=== PATIENT | female | born 1935 | race African-American/Black ===

== ENCOUNTER 2022-08-22 15:47 | Inpatient (IN) ==
[2022-08-22 17:30] LABS: Basophils % 0.2 % (0.0-0.8); Hematocrit 34.2 VOL% (35.7-47.0); Hemoglobin 11.5 GM/DL (12.0-16.0); Immature Granulocytes % 0.6 %; Lymphocytes # 0.6 10*3/uL (1.4-4.0); Lymphocytes % 3.2 % (21.3-54.2); Mean Corpuscular HGB Conc 33.6 GM/DL (32-36); Mean Corpuscular Volume 94.7 FL (87-102); Mean Platelet Volume 11.7 FL (9.6-12.0); Monocytes # 0.4 10*3/uL (0.11-0.8); Monocytes % 2.4 % (1.7-12.7); Neutrophils % 93.6 % (38.7-73.9); Platelet Count 177 T/CUMM (130-400); Red Blood Count 3.61 MC/CUMM (3.8-5.5); Red Cell Distribution Width 13.9 % (9.3-17.3); White Blood Count 17.3 T/CUMM (4-12)
[2022-08-22 17:48] LABS: Albumin 2.9 G/DL (3.4-5.0); Bilirubin,Total 0.7 MG/DL (0.20-1.00); Calcium 9.3 MG/DL (8.5-10.1); Osmolality,Calculated 284.4 MOS/KG (273-304); Potassium 3.9 MMOL/L (3.5-5.1); Total Protein 8.6 G/DL (6.4-8.2)
[2022-08-22 18:01] LABS: Lymphocytes 2 % (20-55); Total Cells Counted 100
[2022-08-22 18:02] LABS: Platelet Estimate Adequate
[2022-08-22 18:23] LABS: Bilirubin,Urine Negative (Negative); Blood, Urine Large mg/dL (Negative); Glucose,Urine (UA) Negative (Negative); Ketones,Urine Negative (Negative); Nitrite,Urine Negative (Negative); Protein,Urine 100 mg/dL (Negative); Urine Appearance Clear (Clear); Urine Color Yellow (Yellow); Urine Specific Gravity >= 1.030 (1.001-1.035); Urine Urobilinogen 0.2 eU/dL (<2.0); Urine pH 5.5 (4.5-8.0)
[2022-08-22 18:26] LABS: Mucus,Urine Few /LPF (Occasional); RBC,Urine 1 /HPF (0-4); Squamous Epithelial Cell,Urine Occasional /HPF (0-10)
[2022-08-22] MEDS ORDERED: VANCOMYCIN INJ 1,000 MG in SODIUM CHLORIDE 0.9% 250 ML IV STA (18:32)
[2022-08-22] MEDS ORDERED: PIPERACILLIN/TAZOBACTAM 3,375 MG in SODIUM CHLORIDE 0.9% 100 ML IV STA (18:32)
[2022-08-22] MEDS ORDERED: ONDANSETRON 4 MG/2 ML VIAL IV PRN (18:40)
[2022-08-22] MEDS: ALBUTEROL/IPRATROPIUM 3 ML NEB RESP TX SCH (19:14)
[2022-08-22] MEDS ORDERED: VANCOMYCIN INJ 1,250 MG in SODIUM CHLORIDE 0.9% 250 ML IV SCH (21:00)
[2022-08-22] MEDS: DOCUSATE SODIUM 100 MG CAPSULE PO SCH (22:21)
[2022-08-22] MEDS: SIMVASTATIN 10 MG TABLET PO SCH (22:21)
[2022-08-22] MEDS: MELATONIN 3 MG TABLET PO SCH (22:21)
[2022-08-22] MEDS: SODIUM CHLORIDE 0.9% 1,000 ML IV SCH (22:50)
[2022-08-22] MEDS: ENOXAPARIN 40 MG/0.4 ML SYRINGE SUBCUT SCH (23:47)
[2022-08-23] MEDS: ALBUTEROL/IPRATROPIUM 3 ML NEB RESP TX SCH ×4 (00:33→19:07)
[2022-08-23] MEDS: PIPERACILLIN/TAZOBACTAM 3,375 MG in SODIUM CHLORIDE 0.9% 100 ML IV SCH ×3 (03:30→17:35)
[2022-08-23] MEDS: BIMATOPROST 0.01% OPH SOLN 2.5 ML BOTTLE BOTH EYES SCH ×2 (04:40→20:38)
[2022-08-23 05:45] LABS: Basophils % 0.2 % (0.0-0.8); Eosinophils % 0.2 % (0.00-10.9); Hematocrit 33.6 VOL% (35.7-47.0); Hemoglobin 11.1 GM/DL (12.0-16.0); Immature Granulocytes % 0.5 %; Immature Granulocytes Absolute 0.07 #; Lymphocytes # 1.4 10*3/uL (1.4-4.0); Lymphocytes % 9.9 % (21.3-54.2); Mean Corpuscular Volume 97.4 FL (87-102); Mean Platelet Volume 12.1 FL (9.6-12.0); Monocytes # 1.1 10*3/uL (0.11-0.8); Monocytes % 7.8 % (1.7-12.7); Neutrophils % 81.4 % (38.7-73.9); Platelet Count 169 T/CUMM (130-400); Red Blood Count 3.45 MC/CUMM (3.8-5.5); Red Cell Distribution Width 13.8 % (9.3-17.3); White Blood Count 14.5 T/CUMM (4-12)
[2022-08-23 06:02] LABS: Albumin 2.9 G/DL (3.4-5.0); Bilirubin,Total 0.8 MG/DL (0.20-1.00); Calcium 9.2 MG/DL (8.5-10.1); Osmolality,Calculated 288.8 MOS/KG (273-304); Potassium 3.2 MMOL/L (3.5-5.1); Total Protein 8.2 G/DL (6.4-8.2)
[2022-08-23 06:44] LABS: Platelet Estimate Adequate
[2022-08-23] MEDS: MULTIVITAMIN (CENTRUM) TABLET PO SCH (09:07)
[2022-08-23] MEDS: FERROUS SULFATE 325 MG TABLET PO SCH ×2 (09:07→20:32)
[2022-08-23] MEDS: ASPIRIN EC 81 MG TABLET PO SCH (09:07)
[2022-08-23] MEDS: VITAMIN E 400 UNIT CAPSULE PO SCH (09:08)
[2022-08-23] MEDS: PANTOPRAZOLE 40 MG TABLET PO SCH (09:08)
[2022-08-23] MEDS: MONTELUKAST 10 MG TABLET PO SCH (09:08)
[2022-08-23] MEDS: propylthiouraciL 50 MG TABLET PO SCH (09:08)
[2022-08-23] MEDS: predniSONE 20 MG TABLET PO SCH (09:08)
[2022-08-23] MEDS: SODIUM POLYSTYRENE SULFATE 15 GM/60 ML BOTTLE PO SCH (09:09)
[2022-08-23] MEDS: VANCOMYCIN INJ 1,250 MG in SODIUM CHLORIDE 0.9% 250 ML IV SCH (09:13)
[2022-08-23] MEDS: POTASSIUM CHLORIDE 20 MEQ TABLET PO SCH ×3 (12:37→15:26)
[2022-08-23] MEDS ORDERED: FUROSEMIDE 20 MG TABLET PO SCH (18:45)
[2022-08-23] MEDS: SODIUM CHLORIDE 0.9% 1,000 ML IV SCH ×2 (19:07→22:08)
[2022-08-23] MEDS: ENOXAPARIN 40 MG/0.4 ML SYRINGE SUBCUT SCH (20:32)
[2022-08-23] MEDS: SIMVASTATIN 10 MG TABLET PO SCH (20:32)
[2022-08-23] MEDS: DOCUSATE SODIUM 100 MG CAPSULE PO SCH (20:32)
[2022-08-23] MEDS: MELATONIN 3 MG TABLET PO SCH (20:32)
[2022-08-24] MEDS: ALBUTEROL/IPRATROPIUM 3 ML NEB RESP TX SCH ×4 (00:20→19:04)
[2022-08-24] MEDS: PIPERACILLIN/TAZOBACTAM 3,375 MG in SODIUM CHLORIDE 0.9% 100 ML IV SCH ×3 (01:22→18:08)
[2022-08-24 06:14] LABS: Basophils % 0.5 % (0.0-0.8); Eosinophils # 0.2 10*3/uL (0.0-0.87); Eosinophils % 1.8 % (0.00-10.9); Hematocrit 32.5 VOL% (35.7-47.0); Hemoglobin 10.5 GM/DL (12.0-16.0); Immature Granulocytes % 0.5 %; Immature Granulocytes Absolute 0.04 #; Lymphocytes # 1.3 10*3/uL (1.4-4.0); Lymphocytes % 14.1 % (21.3-54.2); Mean Corpuscular HGB Conc 32.3 GM/DL (32-36); Mean Corpuscular Volume 97.6 FL (87-102); Mean Platelet Volume 11.7 FL (9.6-12.0); Monocytes # 0.7 10*3/uL (0.11-0.8); Monocytes % 8.1 % (1.7-12.7); Platelet Count 182 T/CUMM (130-400); Red Blood Count 3.33 MC/CUMM (3.8-5.5); Red Cell Distribution Width 13.9 % (9.3-17.3); White Blood Count 8.9 T/CUMM (4-12)
[2022-08-24 06:28] LABS: Calcium 8.9 MG/DL (8.5-10.1); Potassium 3.6 MMOL/L (3.5-5.1)
[2022-08-24] MEDS: PANTOPRAZOLE 40 MG TABLET PO SCH (08:51)
[2022-08-24] MEDS: VITAMIN E 400 UNIT CAPSULE PO SCH (08:51)
[2022-08-24] MEDS: ASPIRIN EC 81 MG TABLET PO SCH (08:51)
[2022-08-24] MEDS: predniSONE 20 MG TABLET PO SCH (08:51)
[2022-08-24] MEDS: propylthiouraciL 50 MG TABLET PO SCH (08:51)
[2022-08-24] MEDS: MONTELUKAST 10 MG TABLET PO SCH (08:51)
[2022-08-24] MEDS: MULTIVITAMIN (CENTRUM) TABLET PO SCH (08:51)
[2022-08-24] MEDS: FERROUS SULFATE 325 MG TABLET PO SCH ×2 (08:51→20:39)
[2022-08-24] MEDS: SODIUM CHLORIDE 0.45% 1,000 ML IV SCH ×2 (08:51→22:23)
[2022-08-24] MEDS: VANCOMYCIN INJ 1,250 MG in SODIUM CHLORIDE 0.9% 250 ML IV SCH (08:52)
[2022-08-24] MEDS: SODIUM POLYSTYRENE SULFATE 15 GM/60 ML BOTTLE PO SCH (10:13)
[2022-08-24] MEDS: ENOXAPARIN 40 MG/0.4 ML SYRINGE SUBCUT SCH (20:37)
[2022-08-24] MEDS: BIMATOPROST 0.01% OPH SOLN 2.5 ML BOTTLE BOTH EYES SCH (20:38)
[2022-08-24] MEDS: DOCUSATE SODIUM 100 MG CAPSULE PO SCH (20:39)
[2022-08-24] MEDS: MELATONIN 3 MG TABLET PO SCH (20:39)
[2022-08-24] MEDS: SIMVASTATIN 10 MG TABLET PO SCH (20:39)
[2022-08-25] MEDS: ALBUTEROL/IPRATROPIUM 3 ML NEB RESP TX SCH ×4 (00:13→19:06)
[2022-08-25] MEDS: PIPERACILLIN/TAZOBACTAM 3,375 MG in SODIUM CHLORIDE 0.9% 100 ML IV SCH ×3 (01:15→17:18)
[2022-08-25 04:51] LABS: Basophils % 0.4 % (0.0-0.8); Eosinophils % 0.2 % (0.00-10.9); Hematocrit 32.8 VOL% (35.7-47.0); Hemoglobin 10.6 GM/DL (12.0-16.0); Immature Granulocytes % 1.6 %; Immature Granulocytes Absolute 0.15 #; Lymphocytes # 1.4 10*3/uL (1.4-4.0); Lymphocytes % 14.8 % (21.3-54.2); Mean Corpuscular HGB Conc 32.3 GM/DL (32-36); Mean Corpuscular Volume 98.8 FL (87-102); Mean Platelet Volume 11.8 FL (9.6-12.0); Monocytes # 0.6 10*3/uL (0.11-0.8); Monocytes % 6.7 % (1.7-12.7); Neutrophils % 76.3 % (38.7-73.9); Platelet Count 191 T/CUMM (130-400); Red Blood Count 3.32 MC/CUMM (3.8-5.5); Red Cell Distribution Width 13.7 % (9.3-17.3); White Blood Count 9.2 T/CUMM (4-12)
[2022-08-25 05:09] LABS: Calcium 9.1 MG/DL (8.5-10.1); Osmolality,Calculated 291.4 MOS/KG (273-304); Potassium 3.4 MMOL/L (3.5-5.1)
[2022-08-25] MEDS ORDERED: POTASSIUM CHLORIDE 20 MEQ TABLET PO ONE (07:28)
[2022-08-25] MEDS: propylthiouraciL 50 MG TABLET PO SCH (09:39)
[2022-08-25] MEDS: predniSONE 20 MG TABLET PO SCH (09:39)
[2022-08-25] MEDS: FERROUS SULFATE 325 MG TABLET PO SCH ×2 (09:39→21:18)
[2022-08-25] MEDS: ASPIRIN EC 81 MG TABLET PO SCH (09:39)
[2022-08-25] MEDS: PANTOPRAZOLE 40 MG TABLET PO SCH (09:39)
[2022-08-25] MEDS: VITAMIN E 400 UNIT CAPSULE PO SCH (09:39)
[2022-08-25] MEDS: MULTIVITAMIN (CENTRUM) TABLET PO SCH (09:43)
[2022-08-25] MEDS: MONTELUKAST 10 MG TABLET PO SCH (09:43)
[2022-08-25] MEDS: VANCOMYCIN INJ 1,250 MG in SODIUM CHLORIDE 0.9% 250 ML IV SCH (09:43)
[2022-08-25] MEDS: SODIUM CHLORIDE 0.45% 1,000 ML IV SCH ×2 (12:42→21:37)
[2022-08-25] MEDS: MELATONIN 3 MG TABLET PO SCH (21:18)
[2022-08-25] MEDS: SIMVASTATIN 10 MG TABLET PO SCH (21:18)
[2022-08-25] MEDS: ENOXAPARIN 40 MG/0.4 ML SYRINGE SUBCUT SCH (21:18)
[2022-08-25] MEDS: DOCUSATE SODIUM 100 MG CAPSULE PO SCH (21:18)
[2022-08-25] MEDS: BIMATOPROST 0.01% OPH SOLN 2.5 ML BOTTLE BOTH EYES SCH (21:20)
[2022-08-26] MEDS: ALBUTEROL/IPRATROPIUM 3 ML NEB RESP TX SCH ×4 (00:12→19:37)
[2022-08-26] MEDS: PIPERACILLIN/TAZOBACTAM 3,375 MG in SODIUM CHLORIDE 0.9% 100 ML IV SCH ×2 (01:22→10:37)
[2022-08-26 05:19] LABS: Basophils # 0.1 10*3/uL (0.0-0.2); Basophils % 0.8 % (0.0-0.8); Eosinophils # 0.1 10*3/uL (0.0-0.87); Eosinophils % 0.9 % (0.00-10.9); Hematocrit 32.4 VOL% (35.7-47.0); Hemoglobin 10.3 GM/DL (12.0-16.0); Immature Granulocytes % 2.4 %; Immature Granulocytes Absolute 0.18 #; Lymphocytes # 1.6 10*3/uL (1.4-4.0); Lymphocytes % 21.6 % (21.3-54.2); Mean Corpuscular HGB Conc 31.8 GM/DL (32-36); Mean Corpuscular Volume 99.4 FL (87-102); Monocytes # 0.6 10*3/uL (0.11-0.8); Monocytes % 8.3 % (1.7-12.7); Platelet Count 175 T/CUMM (130-400); Red Blood Count 3.26 MC/CUMM (3.8-5.5); Red Cell Distribution Width 13.9 % (9.3-17.3); White Blood Count 7.6 T/CUMM (4-12)
[2022-08-26 05:48] LABS: Calcium 8.8 MG/DL (8.5-10.1); Osmolality,Calculated 293.3 MOS/KG (273-304); Potassium 3.9 MMOL/L (3.5-5.1)
[2022-08-26] MEDS: ASPIRIN EC 81 MG TABLET PO SCH (09:05)
[2022-08-26] MEDS: FERROUS SULFATE 325 MG TABLET PO SCH ×2 (09:05→16:18)
[2022-08-26] MEDS: propylthiouraciL 50 MG TABLET PO SCH (09:05)
[2022-08-26] MEDS: MONTELUKAST 10 MG TABLET PO SCH (09:05)
[2022-08-26] MEDS: PANTOPRAZOLE 40 MG TABLET PO SCH (09:05)
[2022-08-26] MEDS: VITAMIN E 400 UNIT CAPSULE PO SCH (09:05)
[2022-08-26] MEDS: VANCOMYCIN INJ 1,250 MG in SODIUM CHLORIDE 0.9% 250 ML IV SCH (09:05)
[2022-08-26] MEDS: MULTIVITAMIN (CENTRUM) TABLET PO SCH (09:05)
[2022-08-26] MEDS: predniSONE 20 MG TABLET PO SCH (09:05)
[2022-08-26] MEDS: SODIUM CHLORIDE 0.45% 1,000 ML IV SCH (09:33)
[2022-08-26] MEDS: LEVOFLOXACIN 750 MG TABLET PO SCH (11:57)
[2022-08-26] MEDS: SIMVASTATIN 10 MG TABLET PO SCH (20:37)
[2022-08-26] MEDS: MELATONIN 3 MG TABLET PO SCH (20:38)
[2022-08-26] MEDS: DOCUSATE SODIUM 100 MG CAPSULE PO SCH (20:40)
[2022-08-26] MEDS: ENOXAPARIN 40 MG/0.4 ML SYRINGE SUBCUT SCH (20:43)
[2022-08-26] MEDS: BIMATOPROST 0.01% OPH SOLN 2.5 ML BOTTLE BOTH EYES SCH (20:45)
[2022-08-27] MEDS: ALBUTEROL/IPRATROPIUM 3 ML NEB RESP TX SCH ×5 (00:07→23:45)
[2022-08-27 05:17] LABS: Basophils % 0.5 % (0.0-0.8); Eosinophils # 0.1 10*3/uL (0.0-0.87); Eosinophils % 1.3 % (0.00-10.9); Hematocrit 29.9 VOL% (35.7-47.0); Hemoglobin 9.7 GM/DL (12.0-16.0); Immature Granulocytes % 2.8 %; Immature Granulocytes Absolute 0.22 #; Lymphocytes # 1.9 10*3/uL (1.4-4.0); Lymphocytes % 23.9 % (21.3-54.2); Mean Corpuscular HGB Conc 32.4 GM/DL (32-36); Mean Corpuscular Volume 98.4 FL (87-102); Mean Platelet Volume 11.6 FL (9.6-12.0); Monocytes # 0.8 10*3/uL (0.11-0.8); Monocytes % 9.7 % (1.7-12.7); Neutrophils % 61.8 % (38.7-73.9); Platelet Count 175 T/CUMM (130-400); Red Blood Count 3.04 MC/CUMM (3.8-5.5); Red Cell Distribution Width 13.8 % (9.3-17.3); White Blood Count 7.8 T/CUMM (4-12)
[2022-08-27 05:39] LABS: Calcium 8.5 MG/DL (8.5-10.1); Potassium 3.6 MMOL/L (3.5-5.1)
[2022-08-27] MEDS: propylthiouraciL 50 MG TABLET PO SCH (08:43)
[2022-08-27] MEDS: VITAMIN E 400 UNIT CAPSULE PO SCH (08:43)
[2022-08-27] MEDS: MULTIVITAMIN (CENTRUM) TABLET PO SCH (08:43)
[2022-08-27] MEDS: MONTELUKAST 10 MG TABLET PO SCH (08:43)
[2022-08-27] MEDS: predniSONE 20 MG TABLET PO SCH (08:43)
[2022-08-27] MEDS: FERROUS SULFATE 325 MG TABLET PO SCH ×2 (08:43→16:10)
[2022-08-27] MEDS: LEVOFLOXACIN 750 MG TABLET PO SCH (08:43)
[2022-08-27] MEDS: ASPIRIN EC 81 MG TABLET PO SCH (08:43)
[2022-08-27] MEDS: PANTOPRAZOLE 40 MG TABLET PO SCH (08:43)
[2022-08-27] MEDS: DEXTROSE 5% 1,000 ML IV SCH (08:46)
[2022-08-27] MEDS: MELATONIN 3 MG TABLET PO SCH (20:04)
[2022-08-27] MEDS: BIMATOPROST 0.01% OPH SOLN 2.5 ML BOTTLE BOTH EYES SCH (20:04)
[2022-08-27] MEDS: SIMVASTATIN 10 MG TABLET PO SCH (20:04)
[2022-08-27] MEDS: DOCUSATE SODIUM 100 MG CAPSULE PO SCH (20:04)
[2022-08-27] MEDS: ENOXAPARIN 40 MG/0.4 ML SYRINGE SUBCUT SCH (20:05)
[2022-08-28] MEDS: DEXTROSE 5% 1,000 ML IV SCH (02:21)
[2022-08-28 05:01] LABS: Basophils # 0.1 10*3/uL (0.0-0.2); Basophils % 0.7 % (0.0-0.8); Eosinophils # 0.1 10*3/uL (0.0-0.87); Eosinophils % 0.9 % (0.00-10.9); Hematocrit 32.8 VOL% (35.7-47.0); Hemoglobin 10.7 GM/DL (12.0-16.0); Immature Granulocytes Absolute 0.36 #; Lymphocytes # 2.4 10*3/uL (1.4-4.0); Lymphocytes % 27.1 % (21.3-54.2); Mean Corpuscular HGB Conc 32.6 GM/DL (32-36); Mean Corpuscular Volume 96.8 FL (87-102); Mean Platelet Volume 11.3 FL (9.6-12.0); Monocytes # 0.9 10*3/uL (0.11-0.8); Monocytes % 9.8 % (1.7-12.7); NRBC # 0.02 10*3/uL; Neutrophils % 57.5 % (38.7-73.9); Platelet Count 204 T/CUMM (130-400); Red Blood Count 3.39 MC/CUMM (3.8-5.5); Red Cell Distribution Width 13.7 % (9.3-17.3)
[2022-08-28 05:32] LABS: Calcium 9.3 MG/DL (8.5-10.1); Potassium 3.5 MMOL/L (3.5-5.1)
[2022-08-28] MEDS: ALBUTEROL/IPRATROPIUM 3 ML NEB RESP TX SCH ×2 (07:20→13:15)
[2022-08-28] MEDS: FERROUS SULFATE 325 MG TABLET PO SCH (09:39)
[2022-08-28] MEDS: propylthiouraciL 50 MG TABLET PO SCH (09:39)
[2022-08-28] MEDS: predniSONE 20 MG TABLET PO SCH (09:39)
[2022-08-28] MEDS: MONTELUKAST 10 MG TABLET PO SCH (09:39)
[2022-08-28] MEDS: MULTIVITAMIN (CENTRUM) TABLET PO SCH (09:39)
[2022-08-28] MEDS: ASPIRIN EC 81 MG TABLET PO SCH (09:39)
[2022-08-28] MEDS: VITAMIN E 400 UNIT CAPSULE PO SCH (09:39)
[2022-08-28] MEDS: PANTOPRAZOLE 40 MG TABLET PO SCH (09:39)
[2022-08-28] MEDS: LEVOFLOXACIN 750 MG TABLET PO SCH (09:39)
[2022-08-28 11:54] VITALS: BP 152/63
== END 2022-08-28 16:10 | DRG 177 ==
LOC: EDBD → EDUNIT# → N.ED 15:47 → N.EDINP 18:40 → SUATTDRO 18:40 → N.3E 20:20
PROVIDERS: ADMIT Family Medicine; ATTEND Internal Medicine

== ENCOUNTER 2022-09-25 16:24 | Inpatient (IN) ==
[2022-09-25] MEDS ORDERED: SODIUM CHLORIDE 0.9% 1,000 ML IV STA (16:55)
[2022-09-25 18:19] LABS: Basophils # 0.1 10*3/uL (0.0-0.2); Basophils % 0.8 % (0.0-0.8); Eosinophils # 0.1 10*3/uL (0.0-0.87); Eosinophils % 0.5 % (0.00-10.9); Hematocrit 45.1 VOL% (35.7-47.0); Hemoglobin 14.1 GM/DL (12.0-16.0); Immature Granulocytes % 0.6 %; Immature Granulocytes Absolute 0.06 #; Lymphocytes # 1.9 10*3/uL (1.4-4.0); Lymphocytes % 17.9 % (21.3-54.2); Mean Corpuscular HGB Conc 31.3 GM/DL (32-36); Mean Platelet Volume 13.1 FL (9.6-12.0); Monocytes # 0.9 10*3/uL (0.11-0.8); Monocytes % 8.7 % (1.7-12.7); Neutrophils % 71.5 % (38.7-73.9); Platelet Count 152 T/CUMM (130-400); Red Blood Count 4.42 MC/CUMM (3.8-5.5); Red Cell Distribution Width 14.9 % (9.3-17.3); White Blood Count 10.4 T/CUMM (4-12)
[2022-09-25 18:29] LABS: INR 1.3; PT Patient Result 13.9 SECS (10.1-12.1)
[2022-09-25 18:34] LABS: Albumin 3.8 G/DL (3.4-5.0); Bilirubin,Total 0.9 MG/DL (0.20-1.00); Calcium 9.9 MG/DL (8.5-10.1); Osmolality,Calculated 337.5 MOS/KG (273-304); Potassium 3.6 MMOL/L (3.5-5.1); Total Protein 8.7 G/DL (6.4-8.2)
[2022-09-25 19:00] LABS: Eosinophils 1 % (0-10); Lymphocytes 19 % (20-55); Total Cells Counted 100
[2022-09-25 19:02] LABS: Anisocytosis 1+; Platelet Estimate Adequate
[2022-09-25 19:03] LABS: Macrocytosis 1+
[2022-09-25 19:29] LABS: Bacteria,Urine Occasional /HPF (Few); Hyaline Casts,Urine 8 /LPF (0-3); Mucus,Urine Occasional /LPF (Occasional); RBC,Urine 5 /HPF (0-4); Squamous Epithelial Cell,Urine Occasional /HPF (0-10)
[2022-09-25 19:34] LABS: Urine Appearance Clear (Clear); Urine Color Yellow (Yellow); Urine Specific Gravity 1.025 (1.001-1.035)
[2022-09-25 19:35] LABS: Bilirubin,Urine Small mg/dL (Negative); Blood, Urine Moderate mg/dL (Negative); Glucose,Urine (UA) Negative (Negative); Ketones,Urine Negative (Negative); Nitrite,Urine Negative (Negative); Protein,Urine Negative (Negative); Urine Urobilinogen 0.2 eU/dL (<2.0)
[2022-09-25] MEDS ORDERED: ACETAMINOPHEN 325 MG TABLET PO PRN (19:37)
[2022-09-25] MEDS ORDERED: ONDANSETRON 4 MG/2 ML VIAL IV PRN (19:37)
[2022-09-25 20:07] LABS: Free T4 (Free Thyroxine) 1.07 NG/DL (0.76-1.46)
[2022-09-25] MEDS: DEXTROSE 5% 1,000 ML IV SCH (20:34)
[2022-09-25] MEDS ORDERED: ENOXAPARIN 30 MG/0.3 ML SYRINGE SUBCUT SCH (21:00)
[2022-09-25] MEDS: DOCUSATE SODIUM 100 MG CAPSULE PO SCH (21:30)
[2022-09-25] MEDS: carvediloL 3.125 MG TABLET PO SCH (21:30)
[2022-09-25] MEDS: SIMVASTATIN 10 MG TABLET PO SCH (21:31)
[2022-09-26 04:11] LABS: Basophils # 0.1 10*3/uL (0.0-0.2); Basophils % 0.6 % (0.0-0.8); Eosinophils # 0.2 10*3/uL (0.0-0.87); Eosinophils % 1.6 % (0.00-10.9); Hematocrit 42.5 VOL% (35.7-47.0); Immature Granulocytes % 0.5 %; Immature Granulocytes Absolute 0.05 #; Lymphocytes % 18.8 % (21.3-54.2); Mean Corpuscular HGB Conc 30.6 GM/DL (32-36); Mean Corpuscular Volume 103.4 FL (87-102); Mean Platelet Volume 13.3 FL (9.6-12.0); Monocytes # 0.9 10*3/uL (0.11-0.8); Neutrophils % 70.5 % (38.7-73.9); Platelet Count 135 T/CUMM (130-400); Red Blood Count 4.11 MC/CUMM (3.8-5.5); Red Cell Distribution Width 14.9 % (9.3-17.3); White Blood Count 10.9 T/CUMM (4-12)
[2022-09-26 04:36] LABS: Albumin 3.3 G/DL (3.4-5.0); Bilirubin,Total 0.9 MG/DL (0.20-1.00); Potassium 3.6 MMOL/L (3.5-5.1); Risk Ratio 3.87; Thyroid Stimulating Hormone 0.992 uIU/ml (0.358-3.74); Total Protein 8.3 G/DL (6.4-8.2); VLDL Cholesterol 28.2 MG/DL
[2022-09-26] MEDS: carvediloL 3.125 MG TABLET PO SCH ×2 (09:29→16:42)
[2022-09-26] MEDS: ASPIRIN EC 81 MG TABLET PO SCH (09:29)
[2022-09-26] MEDS: PANTOPRAZOLE 40 MG TABLET PO SCH (09:30)
[2022-09-26] MEDS: MONTELUKAST 10 MG TABLET PO SCH (09:30)
[2022-09-26] MEDS: VITAMIN E 400 UNIT CAPSULE PO SCH (09:30)
[2022-09-26] MEDS: propylthiouraciL 50 MG TABLET PO SCH (09:57)
[2022-09-26] MEDS: DEXTROSE 5% 1,000 ML IV SCH ×2 (12:51→22:09)
[2022-09-26] MEDS: BIMATOPROST 0.01% OPH SOLN 2.5 ML BOTTLE BOTH EYES SCH ×2 (13:17→22:11)
[2022-09-26] MEDS: SIMVASTATIN 10 MG TABLET PO SCH (22:10)
[2022-09-26] MEDS: DOCUSATE SODIUM 100 MG CAPSULE PO SCH (22:10)
[2022-09-27 06:42] LABS: Potassium 3.1 MMOL/L (3.5-5.1)
[2022-09-27 06:44] LABS: Calcium 8.7 MG/DL (8.5-10.1)
[2022-09-27 06:45] LABS: Osmolality,Calculated 301.4 MOS/KG (273-304)
[2022-09-27] MEDS: NYSTATIN 500,000 UNIT/5 ML UDCUP PO SCH (09:35)
[2022-09-27] MEDS: propylthiouraciL 50 MG TABLET PO SCH (09:35)
[2022-09-27] MEDS: ASPIRIN EC 81 MG TABLET PO SCH (09:35)
[2022-09-27] MEDS: carvediloL 3.125 MG TABLET PO SCH ×2 (09:35→18:37)
[2022-09-27] MEDS: VITAMIN E 400 UNIT CAPSULE PO SCH (09:35)
[2022-09-27] MEDS: PANTOPRAZOLE 40 MG TABLET PO SCH (09:36)
[2022-09-27] MEDS: MONTELUKAST 10 MG TABLET PO SCH (09:36)
[2022-09-27] MEDS: DEXTROSE 5% 1,000 ML IV SCH (09:38)
[2022-09-27] MEDS ORDERED: POTASSIUM BICARB EFFERVESCENT 20 MEQ TAB.EFF PER TUBE PRN (13:51)
[2022-09-28] MEDS: NYSTATIN 500,000 UNIT/5 ML UDCUP PO SCH ×3 (00:48→22:44)
[2022-09-28] MEDS: DOCUSATE SODIUM 100 MG CAPSULE PO SCH (00:48)
[2022-09-28] MEDS: SIMVASTATIN 10 MG TABLET PO SCH ×2 (00:48→22:43)
[2022-09-28] MEDS: BIMATOPROST 0.01% OPH SOLN 2.5 ML BOTTLE BOTH EYES SCH ×2 (00:48→22:44)
[2022-09-28] MEDS: DEXTROSE 5% 1,000 ML IV SCH ×2 (02:16→22:44)
[2022-09-28 06:29] LABS: Calcium 8.7 MG/DL (8.5-10.1); Osmolality,Calculated 282.8 MOS/KG (273-304); Potassium 2.9 MMOL/L (3.5-5.1)
[2022-09-28 07:06] LABS: Basophils % 0.3 % (0.0-0.8); Eosinophils # 0.4 10*3/uL (0.0-0.87); Eosinophils % 2.9 % (0.00-10.9); Hematocrit 34.9 VOL% (35.7-47.0); Immature Granulocytes % 0.7 %; Immature Granulocytes Absolute 0.08 #; Lymphocytes # 2.1 10*3/uL (1.4-4.0); Lymphocytes % 17.1 % (21.3-54.2); Mean Corpuscular HGB Conc 31.5 GM/DL (32-36); Mean Corpuscular Volume 99.4 FL (87-102); Monocytes # 1.5 10*3/uL (0.11-0.8); Monocytes % 11.9 % (1.7-12.7); Neutrophils % 67.1 % (38.7-73.9); Red Blood Count 3.51 MC/CUMM (3.8-5.5); Red Cell Distribution Width 13.8 % (9.3-17.3); White Blood Count 12.2 T/CUMM (4-12)
[2022-09-28 07:07] LABS: Platelet Count 99 T/CUMM (130-400)
[2022-09-28] MEDS: POTASSIUM CHLORIDE RIDER 10 MEQ/100 ML PREMIX IV PRN ×5 (07:52→17:25)
[2022-09-28] MEDS: PANTOPRAZOLE 40 MG TABLET PO SCH (10:06)
[2022-09-28] MEDS: VITAMIN E 400 UNIT CAPSULE PO SCH (10:06)
[2022-09-28] MEDS: propylthiouraciL 50 MG TABLET PO SCH (10:06)
[2022-09-28] MEDS: carvediloL 3.125 MG TABLET PO SCH ×2 (10:06→17:25)
[2022-09-28] MEDS: MONTELUKAST 10 MG TABLET PO SCH (10:06)
[2022-09-28] MEDS: ASPIRIN EC 81 MG TABLET PO SCH (10:06)
[2022-09-28] MEDS: DOCUSATE SODIUM 100 MG/10 ML UDCUP PO SCH (22:43)
[2022-09-29 05:12] LABS: Basophils % 0.3 % (0.0-0.8); Eosinophils # 0.3 10*3/uL (0.0-0.87); Eosinophils % 3.3 % (0.00-10.9); Hematocrit 32.3 VOL% (35.7-47.0); Hemoglobin 10.4 GM/DL (12.0-16.0); Immature Granulocytes % 1.2 %; Immature Granulocytes Absolute 0.12 #; Lymphocytes # 1.6 10*3/uL (1.4-4.0); Lymphocytes % 16.7 % (21.3-54.2); Mean Corpuscular HGB Conc 32.2 GM/DL (32-36); Mean Corpuscular Volume 98.5 FL (87-102); Monocytes % 10.5 % (1.7-12.7); Red Blood Count 3.28 MC/CUMM (3.8-5.5); Red Cell Distribution Width 13.4 % (9.3-17.3); White Blood Count 9.7 T/CUMM (4-12)
[2022-09-29 05:15] LABS: Platelet Count 104 T/CUMM (130-400)
[2022-09-29 05:39] LABS: Calcium 8.4 MG/DL (8.5-10.1); Osmolality,Calculated 282.4 MOS/KG (273-304); Potassium 3.7 MMOL/L (3.5-5.1)
[2022-09-29] MEDS: ASPIRIN EC 81 MG TABLET PO SCH (09:11)
[2022-09-29] MEDS: NYSTATIN 500,000 UNIT/5 ML UDCUP PO SCH ×2 (09:11→21:39)
[2022-09-29] MEDS: propylthiouraciL 50 MG TABLET PO SCH (09:11)
[2022-09-29] MEDS: VITAMIN E 400 UNIT CAPSULE PO SCH (09:12)
[2022-09-29] MEDS: OMEPRAZOLE ODT 20 MG TABLET NG SCH (09:12)
[2022-09-29] MEDS: carvediloL 3.125 MG TABLET PO SCH ×2 (09:12→17:22)
[2022-09-29] MEDS: MONTELUKAST 10 MG TABLET PO SCH (09:12)
[2022-09-29] MEDS: DEXTROSE 5% 1,000 ML IV SCH ×2 (09:13→17:20)
[2022-09-29] MEDS: SIMVASTATIN 10 MG TABLET PO SCH (21:39)
[2022-09-29] MEDS: DOCUSATE SODIUM 100 MG/10 ML UDCUP PO SCH (21:39)
[2022-09-29] MEDS: BIMATOPROST 0.01% OPH SOLN 2.5 ML BOTTLE BOTH EYES SCH (21:39)
[2022-09-30 05:22] LABS: Basophils % 0.4 % (0.0-0.8); Eosinophils # 0.3 10*3/uL (0.0-0.87); Eosinophils % 3.6 % (0.00-10.9); Hemoglobin 11.2 GM/DL (12.0-16.0); Immature Granulocytes % 0.9 %; Immature Granulocytes Absolute 0.07 #; Lymphocytes # 1.5 10*3/uL (1.4-4.0); Lymphocytes % 19.2 % (21.3-54.2); Mean Corpuscular HGB Conc 32.9 GM/DL (32-36); Mean Corpuscular Volume 96.9 FL (87-102); Mean Platelet Volume 13.7 FL (9.6-12.0); Monocytes # 0.8 10*3/uL (0.11-0.8); Monocytes % 9.8 % (1.7-12.7); Neutrophils % 66.1 % (38.7-73.9); Platelet Count 114 T/CUMM (130-400); Red Blood Count 3.51 MC/CUMM (3.8-5.5); Red Cell Distribution Width 13.7 % (9.3-17.3); White Blood Count 7.7 T/CUMM (4-12)
[2022-09-30 06:04] LABS: Calcium 8.6 MG/DL (8.5-10.1); Osmolality,Calculated 278.4 MOS/KG (273-304); Potassium 3.5 MMOL/L (3.5-5.1)
[2022-09-30] MEDS ORDERED: LIDOCAINE 2% 5 ML VIAL ONE (12:28)
[2022-09-30] MEDS ORDERED: ETOMIDATE 20 MG/10 ML VIAL IV ONE (12:28)
[2022-09-30] MEDS ORDERED: LACTATED RINGERS 1,000 ML IV SCH (12:30)
[2022-09-30] MEDS ORDERED: fentaNYL 100 MCG/2 ML VIAL ONE (12:40)
[2022-09-30] MEDS ORDERED: GLYCOPYRROLATE 0.4 MG/2 ML VIAL ONE (13:01)
[2022-09-30] MEDS: VITAMIN E 400 UNIT CAPSULE PO SCH (15:01)
[2022-09-30] MEDS: FERROUS SULFATE 325 MG TABLET PO SCH (15:01)
[2022-09-30] MEDS: MONTELUKAST 10 MG TABLET PO SCH (15:01)
[2022-09-30] MEDS: carvediloL 3.125 MG TABLET PO SCH ×2 (15:01→19:01)
[2022-09-30] MEDS: NYSTATIN 500,000 UNIT/5 ML UDCUP PO SCH (15:02)
[2022-09-30] MEDS: ASPIRIN EC 81 MG TABLET PO SCH (15:02)
[2022-09-30] MEDS: propylthiouraciL 50 MG TABLET PO SCH (15:02)
[2022-09-30] MEDS: OMEPRAZOLE ODT 20 MG TABLET NG SCH (15:02)
[2022-10-01] MEDS: SIMVASTATIN 10 MG TABLET PO SCH (00:45)
[2022-10-01] MEDS: DOCUSATE SODIUM 100 MG/10 ML UDCUP PO SCH (00:46)
[2022-10-01] MEDS: FERROUS SULFATE 325 MG TABLET PO SCH ×2 (00:46→08:31)
[2022-10-01] MEDS: BIMATOPROST 0.01% OPH SOLN 2.5 ML BOTTLE BOTH EYES SCH (00:47)
[2022-10-01] MEDS: NYSTATIN 500,000 UNIT/5 ML UDCUP PO SCH ×2 (00:47→08:32)
[2022-10-01 06:11] LABS: Basophils % 0.3 % (0.0-0.8); Eosinophils # 0.2 10*3/uL (0.0-0.87); Eosinophils % 1.2 % (0.00-10.9); Hematocrit 33.9 VOL% (35.7-47.0); Hemoglobin 11.3 GM/DL (12.0-16.0); Immature Granulocytes % 0.5 %; Immature Granulocytes Absolute 0.06 #; Lymphocytes # 1.2 10*3/uL (1.4-4.0); Lymphocytes % 9.5 % (21.3-54.2); Mean Corpuscular HGB Conc 33.3 GM/DL (32-36); Mean Corpuscular Volume 96.6 FL (87-102); Mean Platelet Volume 13.6 FL (9.6-12.0); Monocytes # 0.9 10*3/uL (0.11-0.8); Monocytes % 6.8 % (1.7-12.7); Neutrophils % 81.7 % (38.7-73.9); Platelet Count 81 T/CUMM (130-400); Red Blood Count 3.51 MC/CUMM (3.8-5.5); Red Cell Distribution Width 13.8 % (9.3-17.3); White Blood Count 13.1 T/CUMM (4-12)
[2022-10-01 06:31] LABS: Calcium 8.6 MG/DL (8.5-10.1); Osmolality,Calculated 276.7 MOS/KG (273-304); Potassium 4.2 MMOL/L (3.5-5.1)
[2022-10-01] MEDS: ASPIRIN EC 81 MG TABLET PO SCH (08:30)
[2022-10-01] MEDS: carvediloL 3.125 MG TABLET PO SCH (08:30)
[2022-10-01] MEDS: VITAMIN E 400 UNIT CAPSULE PO SCH (08:30)
[2022-10-01] MEDS: OMEPRAZOLE ODT 20 MG TABLET NG SCH (08:31)
[2022-10-01] MEDS: propylthiouraciL 50 MG TABLET PO SCH (08:31)
[2022-10-01] MEDS: MONTELUKAST 10 MG TABLET PO SCH (08:31)
[2022-10-01 12:15] VITALS: BP 102/56
== END 2022-10-01 14:00 | disposition swing bed (61) | DRG 682 ==
LOC: EDUNIT# → EDBD → N.EDINP 16:24 → N.ED 16:24 → N.TELES 09-26 10:22
PROVIDERS: ADMIT Internal Medicine; ATTEND Internal Medicine
PROC: EGDWPEG (ICD-10-PCS; 2022-09-30 08:50)